=== PATIENT | female | born 1955 | race American Indian/Alaskan Native ===

== ENCOUNTER 2017-09-05 06:22 | Day surgery (SDC) | payer OTHER ==
[2017-09-01 10:36] VITALS: BMI 27.4
[2017-09-05] MEDS ORDERED: Rocuronium 10 mg/ml (5 ml) ONE (07:15)
[2017-09-05] MEDS ORDERED: Etomidate 20 mg/10ml Inj IV ONE (07:15)
[2017-09-05] MEDS ORDERED: Succinylcholine 200 mg/10 ml Inj IV ONE (07:15)
[2017-09-05] MEDS ORDERED: Neostigmine 1:1000 (1 mg/ml) Inj ONE (07:15)
[2017-09-05] MEDS ORDERED: Propofol 10 mg/ml Inj (20 ML) ONE (07:15)
[2017-09-05] MEDS ORDERED: Phenylephrine 10 mg/ml Inj ONE (07:17)
[2017-09-05] MEDS ORDERED: Lidocaine 2% MPF (5 ml) Inj ONE (07:19)
[2017-09-05] MEDS ORDERED: Bupivacaine HCl 0.5% PF (10 ml) Inj ONE ×2 (07:22→07:43)
[2017-09-05] MEDS ORDERED: Lactated Ringer's 1,000 ML IV ONE (07:40)
[2017-09-05] MEDS ORDERED: EPINEPHrine 1 mg/ml (1:1000) Inj ONE (07:43)
[2017-09-05] MEDS ORDERED: Lidocaine 2% Inj (20ml) ONE (07:44)
[2017-09-05] MEDS ORDERED: ceFAZolin IV 2 gm in Dextrose 2 GM/50 ML BAG IVPB ONE (07:44)
[2017-09-05] MEDS ORDERED: Midazolam 2 MG/2 ML VIAL ONE (07:50)
[2017-09-05] MEDS ORDERED: EPINEPHrine 1 mg/ml (1:1000) Inj IV ONE (08:30)
[2017-09-05] MEDS ORDERED: Lidocaine 2% Inj (20ml) IJ ONE (08:30)
--- NOTE | 2017-09-05 09:49 | PCM.SURG1 ---
Surgeon's Initial Post Op Note - Surgeon's Notes Surgeon: Bertha Giang MD Box Toe Flanger Stitchdowns: Socorro Cabrera PA-C Type of Anesthesia: General Endo Pre-Operative Diagnosis: Right shoulder rotator cuff full thickness tear Operative Findings: see op report Post-Operative Diagnosis: same as pre-op dx Operation Performed: right shoulder arthroscopy, double-row rotator cuff repair , subacromial decompression, biceps tenotomy Specimen/Specimens Removed: none Estimated Blood Loss: EBL {In ML}: 3 Date of Surgery/Procedure: 09/05/17 Time of Surgery/Procedure: 08:30
[2017-09-05] MEDS ORDERED: Oxycodone/Acetaminophen 5/325 mg Tab PO PRN (09:50)
[2017-09-05] MEDS ORDERED: Lactated Ringer's 1,000 ML IV SCH (10:15)
[2017-09-05 12:27] VITALS: O2SAT 96
[2017-09-05 12:55] VITALS: RESP 20
[2017-09-05 15:08] VITALS: BP 149/75; PULSE 83; TEMP 98.5
--- NOTE | 2017-09-05 23:02 | OP ---
PROCEDURE DATE: 09/05/2017 ATTENDING SURGEON: Bertha Giang M.D. AIR GUN OPERATOR: Socorro Cabrera PA-C. ANESTHESIA: General interscalene block. PREOPERATIVE DIAGNOSES: 1. Right shoulder full-thickness rotator cuff tear. 2. Synovitis. 3. Impingement. POSTOPERATIVE DIAGNOSES: 1. Right shoulder synovitis. 2. Full-thickness supraspinatus tear. 3. Biceps tendon tear. 4. Grade II chondral injury, humeral head and glenoid. 5. Impingement. 6. Bursitis. 7. Subacromial adhesions. PROCEDURES: 1. Right shoulder arthroscopic double row rotator cuff repair. 2. Subacromial decompression with acromioplasty. 3. Subacromial lysis of adhesions without manipulation. 4. Complete synovectomy. 5. Biceps tenotomy. 6. Unlisted code [id number], chondroplasty of glenoid and humeral head. EBL: 5 mL. SPECIMENS: None. CLOSURE: Primary. FLUIDS: See anesthesia sheet. ANTIBIOTICS: See anesthesia sheet. COMPLICATIONS: None. INDICATIONS: After failing a course of nonoperative therapy, the patient elected to undergo the above procedures. In the office the risks and possible complications of the shoulder arthroscopy were discussed in detail with the patient. These risks include, but are not limited to, continued pain, lack of motion, infection, vascular injury, and nerve injury including axillary nerve dysfunction, reflex sympathetic dystrophy, compartment syndrome, limb loss, and . The patient expressed an understanding of the risks and possible benefits of the procedure, and was also made aware of the alternatives to surgery. An informed consent was obtained, and was checked immediately preop. Procedure 1: The patient was correctly identified in the holding area and the right shoulder was marked with the surgeon's initials. The patient was transported to the operating room and placed in the supine position and general anesthesia and regional interscalene block was used. Exam under anesthesia: A preoperative orthopedic examination revealed a passive range of motion of 160 degrees of forward elevation, 50 degrees of external rotation, and 130 degrees of abduction. Stability examination revealed no instability. Procedure 2: The patient was then placed in a beach chair position utilizing the beach chair positioning device. The patient's head was stabilized and the indicated upper extremity was prepped and draped in the standard surgical fashion. The anatomic structures were outlined with a skin marker, and 1% lidocaine with epinephrine was injected into the posterior, anterior, and lateral portal areas. A #21-gauge spinal needle was placed in the glenohumeral joint from the posterior portal and 10 mL of sterile saline was injected into the glenohumeral joint. Return of fluid indicated correct needle placement into the joint. The needle was then withdrawn and a #11 blade was used to make a 1-cm incision at the posterior portal site. Next, the arthroscopic blunt trocar was inserted into the glenohumeral joint. A #21-gauge spinal needle was placed through the anterior rotator interval, and the anterior portal was made with a #11 blade after the spinal needle was withdrawn. A 7-mm cannula was then inserted after the skin incision was made and the arthroscopic probe was then used to examine the internal structures of the glenohumeral joint. With the shoulder in abducted and externally rotated position, the articular surface of the rotator cuff was visualized. The arthroscope and probe were then switched from posterior to anterior. The posterior labrum, posterior capsule, and biceps anchor reflection was then inspected with the arthroscope in the anterior portal position. Examination of the glenohumeral joint revealed: 1. Synovitis. 2. Full-thickness supraspinatus tear. 3. Biceps tendon tear. 4. Grade II chondral injury, humeral head and glenoid. Excessive glenohumeral synovitis was cleared with a 4.0 mm full radius shaver. The hypertrophic, erythematous synovium was resected. Hemostasis was maintained with the radiofrequency device. Upon careful arthroscopic evaluation of biceps tendon and its anchor site at the labrum, it was noted to be highly frayed and tears not amenable to repair. Due to tissue quality and the patient's age, decision was made to proceed with biceps tenotomy. Using arthroscopic scissors, biceps tenotomy was successfully performed. The loose edges of labrum were debrided using radiofrequency probe and arthroscopic shaver. The full radius shaver was used to mechanically debride loose chondral edges of the humeral head and glenoid, to a stable border. Extreme care was taken to not disrupt the adjacent chondral surface. The edge of the debrided area was probed to ensure chondral stability. Examination of the subacromial space revealed: 1. Multiple subacromial adhesions. 2. Bursitis. 3. Impingement. 4. Full thickness supraspinatus tear. Visualization of the subacromial space was difficult due to excessive bursitis. A bursectomy was performed using a combination of radiofrequency device as well as a 4.0-mm full radius motorized shaver. The soft tissue on the undersurface of the acromion was debrided utilizing the 4.0-mm full radius shaver and the radiofrequency device was used for hemostasis. At this point, the coracoacromial ligament was released with the radiofrequency device and the acromial branch of the thoracoacromial artery was coagulated with the same instrument. Subacromial decompression was performed with a 4.0-mm conical enma using both the medial portal and the "cutting-block" precision acromioplasty technique from the posterior portal. The undersurface of the acromion was resected to a flat, smooth surface to allow unrestricted excursion of the rotator cuff. There were multiples adhesions noted within the subacromial space. Adhesions were found within the anterior, posterior, and lateral gutters. These adhesions were scarred into anterior and posterior portion of rotator cuff limiting range of motion. Using the 4.0-mm motorized shaver and radiofrequency probe, adhesions were debrided and removed. All the bleeding surfaces were coagulated. Afterwards, the shoulder was taken through range of motion and there was a notable improvement in range of motion and unrestrictive excursion of rotator cuff muscle and tendons. After adequate subacromial decompression, attention was then turned to the rotator cuff tear, which was easily visualized after adequate bursectomy had been performed. An auxiliary lateral portal was placed 2 cm posterior to the original lateral portal, after a correct "-man's angle" was determined using a transdeltoid 21 gauge spinal needle. Arthroscopic soft tissue releases were performed using an elevator at the coracohumeral ligament insertion and superior glenoid to free up the rotator cuff to provide adequate excursion to support a repair to the greater tuberosity. Next, the greater tuberosity was gently debrided with a combination of the 4.0 mm straight shaver and radiofrequency device, and the bone was denuded to a bleeding surface using the 4.0-mm enma. The lateral margin of the rotator cuff tear was debrided to a smooth and stable tendon surface using the 4.0-mm shaver. Two 4.5-mm Arthrex corkscrew suture anchors were placed with the proper "-man's angle" into the greater tuberosity, and a mattress suture from each anchor was passed through supraspinatus 10 mm medial to the torn edge. These anchors formed the medial row of the double row repair. The arm was abducted to 70 degrees, and the leading edge of the cuff was drawn to its proper insertion on the greater tuberosity. The #2 FiberWire mattress sutures were tied with standard arthroscopic knot tying techniques - Jasmeet knots and half hitches using a knot pusher. The remaining sutures were secured to the tuberosity with two 4.5-mm PushLock absorbable anchors, which were placed with standard technique into the lateral aspect of the greater tuberosity approximately 1 cm lateral to the medial row anchors. One suture strand from each knot was crossed to the diagonal PushLock anchor along with the suture strand from the corresponding anchor directly medial. This linking of the medial and lateral row formed a "suture bridge" rotator cuff repair. The ends of the remaining sutures were then cut. The shoulder was put through a passive ROM, and the rotator cuff repair was noted to be stable through a ROM of 130/50. No prominence of the suture knots or of rotator cuff tissue was noted to impinge during abduction and internal rotation. Postoperatively, the patient will be maintained in an abduction sling, also provided with my rehab protocol, defining the restriction and sling use for 6-8 weeks. Followup in 4 to 6 weeks. Postoperatively, a continuous passive motion machine will be delivered to the patient's home and the patient will be instructed in its use. The CPM machine is necessary to optimize the patient's postoperative range of motion and provide the best possible outcome from the procedure. During this procedure, I was assisted by Socorro Cabrera PA-C, who assisted in positioning the patient on the operating room table as well as transferring the patient from the operating room table to the recovery room stretcher. In addition, Socorro Cabrera PA-C, assisted me during the actual operative procedure by positioning the patient's extremity to allow for easier arthroscopic access to all areas of the joint. The presence of Socorro Cabrera PA-C, as my operative contract administrative assistant, was medically necessary to ensure the utmost safety of the patient in the pre, intra-, and postoperative periods. Bertha Giang MD [facility] # [id number]
[2017-09-06] MEDS ORDERED: Insulin Regular 100 units/ml SC SCH (07:30)
== END 2017-09-05 14:30 | disposition home or self-care (01) ==
LOC: H.OPSURG 06:22
PROVIDERS: ATTEND Orthopaedic Surgery
DX: M65.811 Other synovitis and tenosynovitis, right shoulder (principal); S46.211A Strain of muscle, fascia and tendon of other parts of biceps, right arm, initial encounter; M75.51 Bursitis of right shoulder; M75.00 Adhesive capsulitis of unspecified shoulder
CPT/HCPCS: 29821; 29827; 29828; 82948; C1713; J0171; J0330; J0690; J2001; J2250; J2370; J2405; J2704; J2710; J3010; J7030; J7120